=== PATIENT | female | born 1955 | race Caucasian/White ===

== ENCOUNTER → 2020-07-12 | Day surgery (SDC) | payer BC | END | disposition home or self-care (01) | LOC: FRADUS-SUR 12:26 | PROVIDERS: ATTEND Surgery Surgical Oncology | PROC: 0H9U3ZX Drainage of Left Breast, Percutaneous Approach, Diagnostic (ICD-10-PCS; principal; 2020-07-12) | PROC: BH41ZZZ Ultrasonography of Left Breast (ICD-10-PCS; 2020-07-12) | DX: N60.02 Solitary cyst of left breast (principal) | CPT/HCPCS: 19000; 76942-TC ==